=== PATIENT | female | born 1960 | race Caucasian/White ===

== ENCOUNTER → 2017-08-24 | Outpatient (CLI) | payer BC ==
--- NOTE | 2017-08-24 09:09 | KCIC ---
MRI of the cervical spine without contrast 08/24/2017 CLINICAL HISTORY: Neck pain with right arm numbness for the last 6 weeks. TECHNIQUE: Unenhanced T1-weighted, T2-weighted and inversion recovery sagittal and gradient echo and T2-weighted axial images of the cervical spine were obtained. FINDINGS: Comparison study is dated 09/09/2012. Minimal lateral curvature of the cervical spine is seen convex to the left. There is slight reversal of the normal cervical lordosis. Degenerative signal changes are seen involving all of the disks of the cervical spine. Degenerative signal changes within the marrow surrounding these discs. Loss of height of the C5-6 and C6-7 discs is noted. The cervical spinal cord is normal morphology, position, and signal characteristics. At the C2-3, C3-4 and C4-5 disc spaces there are mild generalized disc bulges. Degenerative changes are seen involving the uncovertebral and facet joints bilaterally. These findings do not result in significant central spinal canal or neural foraminal stenosis. At the C5-6 disc space there is a mild generalized disc bulge. Degenerative changes are seen involving the uncovertebral and facet joints, right greater than left. These findings when combined do not result in significant central spinal canal stenosis. Mild right neural foraminal stenosis is seen. The left neural foramen is patent. At the C6-7 disc space there is a mild generalized disc bulge. This is eccentric to the right. Degenerative changes are seen involving the uncovertebral and facet joints, left greater than right. These findings when combined do not result in significant central spinal canal. Mild left greater than right neural foraminal stenosis is seen. At the C7-T1 disc space there is a minimal generalized disc bulge. Degenerative changes are seen involving the facet joints bilaterally. These findings when combined do not result in significant central spinal canal or neural foraminal stenosis. IMPRESSION: Degenerative changes are seen throughout the cervical spine. These findings do not result in significant central spinal canal stenosis at any level. Mild right neural foraminal stenosis is seen at C5-6. Mild left greater than right neural foraminal stenosis is seen at C6-7. Electronically signed by: Doron Crockett MD (08/24/2017 9:06 AM) [facility]
== END | disposition home or self-care (01) ==
LOC: KCIC MRI 07:50
PROVIDERS: ATTEND Physical Medicine & Rehabilitation
DX: M54.12 Radiculopathy, cervical region (principal); G89.29 Other chronic pain; M48.02 Spinal stenosis, cervical region; R20.0 Anesthesia of skin
CPT/HCPCS: 72141

== ENCOUNTER → 2018-05-24 | Outpatient (CLI) | payer BC | END | disposition home or self-care (01) | LOC: EKG 10:42 | DX: Z01.419 Encounter for gynecological examination (general) (routine) without abnormal findings (principal); R94.31 Abnormal electrocardiogram [ECG] [EKG] | CPT/HCPCS: 93005 ==

== ENCOUNTER → 2019-02-08 | Outpatient (CLI) | payer BC ==
[~2019-02-08] MED LIST: DICL75TA PO; ESTR42.53 VG; HYDR-2765 PO; META-21 PO; TOLT4CAP PO
--- NOTE | 2019-02-08 11:31 | KCIC ---
MRI Lumbar Spine without contrast History: Lumbar radiculitis, chronic low back pain off and on worse in recent weeks, left leg pain Technique: Multiplanar, multi sequential noncontrast MR imaging was performed of the lumbar spine. Comparison: None Findings: Lumbar vertebral body stature is overall maintained. There is accentuation of the lordotic curvature. Conus terminates near L1. There is grade 1 anterior spondylolisthesis at L5-S1 and L4-L5. 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 There is moderate to severe degenerative disc disease L5-S1, mild to moderate degenerative disease at L2-3 and to lesser degree at L3-4 and L4-5. There is [id number] levoscoliosis centered near L2. L1-L2: Spinal canal and neural foramina are adequate. There is moderate facet hypertrophic change and mild buckling of the ligamentum flavum. L2-L3: There is moderate to severe facet degenerative change. There is moderate buckling of the ligamentum flavum greater on the right. There is prominence of posterior epidural fat. There is negligible disc osteophyte complex and bulge. There is mild narrowing of the far right lateral recess. There is [id number] narrowing of the right neural foramen, left neural foramen adequate. L3-L4: There is moderate buckling of the ligamentum flavum and facet hypertrophic change greater on the right. There is minimal disc osteophyte complex and bulge. There is anterior annular tear. There is mild narrowing of the far left lateral recess. There is moderate right and mild left neural foramina compromise. L4-L5: There is severe facet degenerative change and mild buckling of the ligamentum flavum. There is mild narrowing the far left lateral recess. There is moderate to severe narrowing of the right neural foramen with contact of the undersurface and posterior surface of the exiting right L4 nerve root. There is also fairly severe narrowing of the left neural foramen in part by shallow protrusion, contact exiting left L4 nerve root. L5-S1: There is fairly severe facet degenerative change. There is left laminectomy defect. There is focus of increased T2 and STIR signal posteriorly likely large annular tear. There is disc osteophyte complex. There is partial uncovering of the posterior aspect of the disc due to spondylolisthesis. Spinal canal is adequate. There is moderate to severe neural foramina compromise bilaterally. Impression: 1. There is grade 1 anterior spondylolisthesis at L4-5 and L5-S1. 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 There is mild lateral recess stenosis on the left at L4-5 and L3-4 and on the right at L2-3. 2. There is neural foramina compromise as stated, more significant narrowing bilaterally at L4-5 and L5-S1, to lesser degree right greater than left at L3-4 and on the right at L2-L3. 3. There is multilevel degenerative disc disease greatest at L5-S1. 4. There is [id number] lumbar levoscoliosis. Electronically signed by: Ghulam Nuñez MD (02/08/2019 11:27 AM) [facility]
== END | disposition home or self-care (01) ==
LOC: KCIC MRI 09:36
PROVIDERS: ATTEND Physical Medicine & Rehabilitation
DX: M43.17 Spondylolisthesis, lumbosacral region (principal); M47.26 Other spondylosis with radiculopathy, lumbar region; M51.16 Intervertebral disc disorders with radiculopathy, lumbar region; M53.3 Sacrococcygeal disorders, not elsewhere classified; M48.07 Spinal stenosis, lumbosacral region; M41.86 Other forms of scoliosis, lumbar region; M25.78 Osteophyte, vertebrae
CPT/HCPCS: 72148

== ENCOUNTER → 2019-04-06 | Outpatient (CLI) | payer BC ==
[~2019-04-06] MED LIST changes: +IOHEXOL 180 MG/ML 10 ML VIAL. ONE; +methylPREDNISolone ACETATE 40 MG/ML VIAL. ONE; +methylPREDNISolone ACETATE 80 MG/ML VIAL. ONE
--- NOTE | 2019-04-07 05:51 | PAIN ---
DATE OF SERVICE: 04/06/2019 INITIAL CONSULTATION FOR PAIN CLINIC CHIEF COMPLAINT: Low back and left lower extremity pain. HISTORY OF PRESENT ILLNESS: This is a 58-year-old female who presents with history of pain in the low back, left lower extremity for many years, worse over the past 1 year. The patient reports no specific injury or action that she is aware of. Pain in the low back, posterior gluteus, posterior thigh, lateral thigh, anterior thigh into the posterior calf and medial calf as well. The patient reports it is becoming more constant, sharp, shooting, radiating into the left leg. No pain on the right leg, worse with walking, standing, changing positions, especially climbing stairs, putting all the weight on her left leg. The patient reports it awakens her from sleep occasionally, but not every night, does not affect her bowel or bladder control, but does affect her ability to walk. She is not using any assistive devices, however, but she is favoring her left leg. The patient has had physical therapy in the past, trigger point injection as well as doing exercise currently all of which helped at that time, but only to a moderate extent. The patient is taking hydrocodone as well as metaxalone and diclofenac. The metaxalone and hydrocodone seemed to help, but only by about 50% at most. 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 The patient rates her disability rating from 0 to 10, 10 being the worst as a 7 to 8 with family and home responsibilities, recreation, social activity; occupation is a 9 and sexual behavior, self-care and life support activities are all rated at 0. The patient reports no loss of motor function in the left lower extremity, but significant fatigability especially with standing or even walking for more than 5 to 10 minutes. PAST MEDICAL HISTORY: Significant for arthritis, dizziness and difficulty urinating. PREVIOUS SURGERY: Includes hysterectomy, left foot surgery, hernia surgery and a right tendon repair in the hand. CURRENT MEDICATIONS: Include Estrace, Skelaxin, hydrocodone, diclofenac and Detrol. ALLERGIES: THE PATIENT IS ALLERGIC TO SULFA. FAMILY HISTORY: Significant for cancers. SOCIAL HISTORY: The patient drinks alcohol about once a month or less, does not smoke, does not use any illegal, illicit or recreational drugs. She is and lives with her spouse, lives locally in [place], [place]. REVIEW OF SYSTEMS: The patient's review of systems is positive for those items mentioned in the history of present illness. All systems reviewed and otherwise negative. It is complete, full and well documented on the patient's chart. PHYSICAL EXAMINATION: VITAL SIGNS: The patient's blood pressure is 197/115, pulse 78, respirations 18, temperature 98.2 degrees Fahrenheit, height 5 feet 7 inches and weight is 206 pounds. GENERAL: The patient is awake, alert, oriented, appropriate, very pleasant demeanor. HEENT: Head shows normocephalic and atraumatic. Extraocular movements are intact and symmetrical. Oral cavity: Mucous membranes are moist and pink. Dentition is intact. NECK: Shows anterior throat is supple without palpable lymphadenopathy noted. Swallow reflex is symmetrical. CHEST: Shows normal with inspection. Breath sounds are clear to auscultation bilaterally. HEART: Shows S1, S2 clear. No murmurs are auscultated. ABDOMEN: Shows soft, nontender and nondistended. No palpable organomegaly is noted. No rebound or guarding demonstrated. BACK: Shows spine grossly in the midline. Normal appearing thoracic kyphosis, lumbar lordotic curvature. Lumbar paraspinous muscle shows symmetrical on inspection. With palpation shows some moderate tenderness, but only diffusely in the low lumbar distribution, but only in the lower lumbar more in the left than the right without radiation. No tenderness over the spinous processes, sacrum or sacroiliac regions. EXTREMITIES: The patient's lower extremities show deep tendon reflexes at 1+ in the patellar and tendo-calcaneus tendons. Motor exam is approximately 4 on a scale of 5 on the left and 5/5 on the right with dorsiflexion, extension, quadriceps and hamstring flexion. Peripheral pulses are 1+ posterior tibia. No peripheral edema is noted bilaterally. Straight leg raising is noted to be positive on the left at about 40 degrees and right side is negative. Gaenslen's and Salvatore's maneuvers are negative bilaterally. The patient is able to stand, stand on her toes, walks with a normal appearing gait for short distance in the office today and does not appear to favor the right or left lower extremity significantly. SKIN: The patient's skin shows warm and dry and good turgor. No edema. No sores, rashes or bruising throughout. IMPRESSION: 1. This is a 58-year-old female with approximate one-year history of pain in the low back, left lower extremity in a radicular fashion. 2. MRI scan of the lumbar spine as noted. 3. Arthritis. PLAN: Options were discussed with the patient including conservative medical management, physical therapy, interventional techniques. She would like to pursue interventional techniques. We discussed a lumbar epidural steroid injection using description as well as anatomical models to describe the procedure. Risks were then discussed including, but not limited to bleeding, infection, possibility of epidural hematoma and subsequent neurological compromise, dural puncture, headaches, spinal cord and/or nerve damage, side effects of steroid medication and poor results regarding pain control. The patient understands and wished to proceed. The patient will return to the clinic in approximately 2 weeks for followup, was counseled as to return appointment, activity level and side effects to be aware of. DIAGNOSES: Lumbar radiculopathy with lumbar degenerative disk disease and lumbar spinal stenosis. PROCEDURE: Lumbar epidural steroid injection, translaminar approach at the L4-L5 level using C-arm fluoroscopic guidance under sterile prep and drape using local anesthetic. MEDICATION INJECTED: A total of 120 mg of Depo-Medrol plus 10 mL of preservative-free normal saline and 2 mL of Isovue for contrast. CONDITION AT DISCHARGE: Stable. The patient tolerated the procedure well and had no complications. KATHY GRIMM MD DR: MAYLIN/lonny JOB#: [id number] / [id number]
== END ==
LOC: PNCL 10:09
PROVIDERS: ATTEND Anesthesiology
DX: M51.16 Intervertebral disc disorders with radiculopathy, lumbar region (principal); M54.5 Low back pain; M19.90 Unspecified osteoarthritis, unspecified site; Z88.2 Allergy status to sulfonamides; Z79.899 Other long term (current) drug therapy; Z90.710 Acquired absence of both cervix and uterus; Z98.890 Other specified postprocedural states
CPT/HCPCS: 62323; J1030; J1040; Q9965

== ENCOUNTER → 2019-04-20 | Outpatient (CLI) | payer BC ==
--- NOTE | 2019-04-20 23:47 | PAIN ---
DATE OF SERVICE: 04/20/2019 PROGRESS NOTE FOR PAIN CLINIC: DIAGNOSES: Lumbar radiculopathy with lumbar degenerative disk disease, lumbar spinal stenosis. HISTORY OF PRESENT ILLNESS: The patient is a 58-year-old female who returns for followup status post lumbar epidural steroid injection x 1. The patient reports about 50% improvement and her left leg is completely resolved. No pain in the leg at this time. It is all in the back and the hip posteriorly and laterally on the lateral thigh. The patient reports it is 7 on a scale of 10 at its worst, 3 on average, 0 at its least and is a 3 today. Over the past week, the patient reports it is a sharp pain that is shooting, also radiating to the left leg, but again much improved in the leg itself. The patient reports no new motor or sensory deficits, no new bowel or bladder incontinence, had been sleeping well at night, increased her distance walking, doing activities at work and at home and traveling with greater ease and comfort. PHYSICAL EXAMINATION: VITAL SIGNS: The patient's blood pressure is 172/79, pulse is 88, respirations are 18, temperature 97.9 degrees Fahrenheit, height is 5 feet 5 inches, weight is 202 pounds. GENERAL: The patient is awake, alert, oriented, appropriate, very pleasant demeanor. HEENT: Head shows normocephalic, atraumatic. Extraocular muscles are intact and symmetrical. Oral cavity: Mucous membranes moist and pink. Dentition is intact. NECK: Shows anterior throat supple without palpable lymphadenopathy noted. Swallow reflex symmetrical. CHEST: Shows normal with inspection. Breath sounds clear to auscultation bilaterally. HEART: Shows S1, S2 clear. No murmurs auscultated. ABDOMEN: Soft, nontender, nondistended. No palpable organomegaly is noted. No rebound or guarding demonstrated. BACK: Shows spine grossly in the midline. Normal appearing thoracic kyphosis and lumbar lordotic curvature. Lumbar paraspinous muscle shows symmetrical on inspection, with palpation shows some mild tenderness, but only diffusely in the low lumbar distribution without radiation. The patient has good rotational motion both laterally as well as extension and flexion without significant pain reported. EXTREMITIES: Lower extremities show deep tendon reflexes 1+ in the patellar and tendo calcaneus tendons are equal. Motor exam is approximately 4/5 on the left and 5/5 on the right. Peripheral pulses are 1+ posterior tibial. No peripheral edema is noted bilaterally. Options were discussed with the patient. The patient's old chart was reviewed as well as her current medication regimen updated. Current review of systems updated today as well. We will proceed with a second lumbar epidural steroid injection today with fluoroscopic guidance. Risks were again discussed including, but not limited to bleeding, infection, possibility of epidural hematoma, subsequent neurologic compromise, dural-puncture headaches, spinal cord and/or nerve damage, side effects of steroid medication and poor results regarding pain control. The patient understands and wished to proceed. The patient will return to clinic in approximately 2 weeks for followup, was counseled as to return appointment, activity level and side effects to be aware of. DIAGNOSES: Lumbar radiculopathy with lumbar spinal stenosis, lumbar degenerative disk disease. PROCEDURE: Lumbar epidural steroid injection, translaminar approach L4-L5 level using C-arm fluoroscopic guidance under sterile prep and drape using local anesthetic. MEDICATION INJECTED: A total of 120 mg Depo-Medrol plus 10 mL preservative-free normal saline and 2 mL of contrast. CONDITION AT DISCHARGE: Stable. The patient tolerated the procedure well, had no complications. KATHY GRIMM MD DR: MAYLIN/lonny JOB#: [id number] / [id number]
== END ==
LOC: PNCL 09:57
PROVIDERS: ATTEND Anesthesiology
DX: M51.16 Intervertebral disc disorders with radiculopathy, lumbar region (principal); M48.061 Spinal stenosis, lumbar region without neurogenic claudication
CPT/HCPCS: 62323; J1030; J1040; Q9965

== ENCOUNTER → 2019-05-10 | Outpatient (CLI) | payer BC ==
--- NOTE | 2019-05-10 11:15 | PAIN ---
DATE OF SERVICE: 05/10/2019 PROGRESS NOTE FOR PAIN CLINIC DIAGNOSES: Lumbar radiculopathy with lumbar degenerative disk disease and lumbar spinal stenosis. HISTORY OF PRESENT ILLNESS: The patient is a 58-year-old female who returns for followup status post lumbar epidural steroid injection x 2, most recently on 04/20/2019. The patient did very well with this with about 50% improvement overall. The patient reports that she is doing a lot of walking. She was on vacation last week and was walking and doing some hiking and this has increased the pain in the low back and left leg. The patient reports it is in the left posterior gluteus, posterior lateral thigh, lateral anterior thigh, anterior medial thigh, medial lower leg as well as lateral lower leg with some tingling in the leg below the knee. The patient reports a burning, sharp, radiating tingling, sometimes more tight and shooting in the back as well. The patient reports it is a 7 on a scale of 10 at its worse, 2 on average, 0 at its least and is a 2 today. The patient reports no new motor or sensory deficits and no new bowel or bladder incontinence. Reports it does not awaken her from sleep at night, better with sitting or lying down. Otherwise, she was increasing her distance walking with greater ease. Again, feels that she may have done more walking than necessary on her vacation. PHYSICAL EXAMINATION: VITAL SIGNS: The patient's blood pressure 130/96, pulse 76, respirations are 16 and temperature is 98.3 degrees Fahrenheit. Height is 5 feet 5 inches and weight is 209 pounds. GENERAL: The patient is awake, alert, oriented, appropriate and very pleasant demeanor. HEENT: Head is normocephalic and atraumatic. Extraocular movements are intact and symmetrical. Oral cavity: Mucous membranes moist and pink. Dentition is intact. NECK: Shows anterior throat supple. CHEST: Shows normal with inspection. Breath sounds are clear bilaterally. HEART: Shows S1 and S2 clear. ABDOMEN: Soft, nontender and nondistended. BACK: Shows spine grossly in the midline. Lumbar paraspinous musculature shows symmetrical on inspection and palpation shows some moderate tenderness diffusely bilaterally but only in the low lumbar distribution. The patient has full rotational motion of the lumbar spine, both laterally as well as extension and flexion without significant increase in pain. EXTREMITIES: Lower extremities show deep tendon reflexes 1+ in the patellar and tendo-calcaneus tendons. Motor exam is approximately 4 on a scale of 5 with left dorsiflexion and extension, 5/5 with right. Peripheral pulses are 1+ posterior tibia. No peripheral edema is noted bilaterally. Options were discussed with the patient. The patient's old chart was reviewed as well as her current medication regimen updated. Current review of systems updated today as well. We will proceed with a third lumbar epidural steroid injection today with fluoroscopic guidance. Risks were again discussed including, but not limited to bleeding, infection, possibility of epidural hematoma, subsequent neurological compromise, dural puncture, headaches, spinal cord and/or nerve damage, side effects of steroid medication and poor results regarding pain control. The patient understands and wished to proceed. The patient will return to the clinic in approximately 2 weeks for followup, was counseled as to return appointment, activity level and side effects to be aware of. DIAGNOSES: Lumbar radiculopathy with lumbar degenerative disk disease and lumbar spinal stenosis. PROCEDURE: Lumbar epidural steroid injection, translaminar approach, L4-L5 level using C-arm fluoroscopic guidance under sterile prep and drape using local anesthetic. MEDICATION INJECTED: A total of 120 mg Depo-Medrol plus 10 mL of preservative-free normal saline and 2 mL of contrast. CONDITION AT DISCHARGE: Stable. The patient tolerated the procedure well and had no complications. KATHY GRIMM MD DR: MAYLIN/lonny JOB#: [id number] / [id number]
== END ==
LOC: PNCL 08:58
PROVIDERS: ATTEND Anesthesiology
DX: M51.16 Intervertebral disc disorders with radiculopathy, lumbar region (principal); M48.061 Spinal stenosis, lumbar region without neurogenic claudication
CPT/HCPCS: 62323; J1030; J1040; Q9965

== ENCOUNTER 2019-08-13 17:58 | Emergency (ER) | payer BC ==
[~2019-08-13] VITALS: Ht 167.6 cm; Wt 90.7 kg
[~2019-08-13 17:58] MED LIST changes: -IOHEXOL 180 MG/ML 10 ML VIAL. ONE; -methylPREDNISolone ACETATE 40 MG/ML VIAL. ONE; -methylPREDNISolone ACETATE 80 MG/ML VIAL. ONE
[2019-08-13 18:06] VITALS: BP 139/83
[2019-08-13] MEDS ORDERED: DIPHTH,PERTUSS(ACELL),TET TOX 0.5 ML DISP.SYRIN. VAX IM ONE (18:30)
[2019-08-13] MEDS ORDERED: LIDOCAINE 1% PF 2 ML VIAL. INJ ONE (18:30)
[2019-08-13] MEDS ORDERED: GELATIN SPONGE SIZE 12-7MM SPONGE. ONE (18:54)
--- NOTE | 2019-08-13 19:08 | PHYS DOC ---
Past Medical History Past Medical History: Hypertension Past Surgical History: Hysterectomy Additional Past Surgical Histo: HERNIA Alcohol Use: Rarely Drug Use: None Adult General Chief Complaint Chief Complaint: LACERATION/AVULSION HPI HPI Patient is a 58 year old female who presents to the emergency department with complaints of a left thumb laceration. Patient states she is putting dishes away when she tried to catch a falling glass and it broke and sliced her thumb. She is unsure when her last tetanus shot was. She denies any numbness, tingling, or decreased range of motion of the affected thumb. She states the incident happened just prior to arrival. Review of Systems Review of Systems Constitutional: Denies fever or chills [] Musculoskeletal: Denies joint pain [] Integument: Denies rash; see history of present illness Neurologic: Denies headache, focal weakness or sensory changes [] ] Complete systems were reviewed and found to be within normal limits, except as documented in this note. Current Medications Current Medications Current Medications Medications (Trade) Dose Ordered Sig/Ysabel Start Time Stop Time Status Last Admin Dose Admin Diphtheria/ Tetanus/Acell Pertussis (Boostrix) 0.5 ml ONCE ONCE 08/13/19 18:30 08/13/19 18:31 DC 08/13/19 18:23 0.5 ML Gelatin (Gelfoam Size 12-7mm) 1 each STK-MED ONCE 08/13/19 18:54 08/13/19 18:54 DC Lidocaine HCl (Xylocaine-Mpf 1% 2ml Vial) 4 ml 1X ONCE 08/13/19 18:30 08/13/19 18:31 DC 08/13/19 18:24 4 ML Allergies Allergies Allergies Coded Allergies Type Severity Reaction Last Updated Verified Sulfa (Sulfonamide Antibiotics) Allergy Intermediate fever 04/06/19 Yes Physical Exam Physical Exam Constitutional: Well developed, well nourished, no acute distress, non-toxic appearance. [] HENT: Normocephalic, atraumatic, bilateral external ears normal, nose normal. [] Eyes: PERRLA, EOMI, conjunctiva normal, no discharge. [] Neck: Normal range of motion, no stridor. [] Cardiovascular:Heart rate regular rhythm Lungs & Thorax: Respirations even and unlabored, no retractions, no respiratory distress Skin: Warm, dry, no erythema, no rash; 2 cm x 1.5 cm v-shaped laceration noted to left thumb, bleeding controlled with pressure bandage. . [] Extremities: L thumb: No cyanosis, ROM intact, no edema. [] Neurologic: Alert and oriented X 3, normal motor function, normal sensory function, no focal deficits noted. [] Psychologic: Affect normal, judgement normal, mood normal. [] Current Patient Data Vital Signs Vital Signs Date Time Temp Pulse Resp B/P (MAP) Pulse Ox O2 Delivery O2 Flow Rate FiO2 08/13/19 18:06 97.2 89 14 139/83 (101) 98 Room Air 97.2 EKG EKG [] Radiology/Procedures Radiology/Procedures Laceration Repair by me: Anesthesia: 1% lidocaine locally Location: L thumb Tendon/Joint/Nerves: No injury Foreign body: None detected after copious irrigation and exploration Technique: Simple Interrupted Sutures Complexity: No subcutaneous sutures/mucosal repair/edge excision Post Closure Length: 3.5 cm Patient's bleeding was easily controlled in the department and there is no indication of anemia. No evidence of compartment syndrome, neurologic injury, vascular injury, open joint, tendon laceration, or foreign body. Patient is appropriate for outpatient follow up. Course & Med Decision Making Course & Med Decision Making Pertinent Labs and Imaging studies reviewed. (See chart for details) [] Dragon Disclaimer Dragon Disclaimer This electronic medical record was generated, in whole or in part, using a voice recognition dictation system. Departure Departure Impression: Primary Impression: Laceration of left thumb without foreign body without damage to nail Additional Impression: Need for Tdap vaccination Disposition: 01 HOME, SELF-CARE Condition: STABLE Referrals: JUANITO LANDRUM MD (PCP) Patient Instructions: Laceration Care, Adult, [id number] Additional Instructions: Keep the area clean and dry. You may take Tylenol or ibuprofen as needed for pain. Keep the dressing that was placed today on for 24 hours then change the dressing twice a day and apply antibiotic ointment to the area. Follow-up with your primary care doctor, or return to the emergency room in 14 days to have the sutures removed, sooner if you develop signs of infection including: redness, warmth, drainage, or a fever. Problem Qualifiers Primary Impression: Laceration of left thumb without foreign body without damage to nail Encounter type: initial encounter Qualified Codes: S61.012A - Laceration without foreign body of left thumb without damage to nail, initial encounter CEDRICK LOWE APRN Aug 13, 2019 19:08
== END 2019-08-13 19:37 | disposition home or self-care (01) ==
LOC: ER 17:58
DX: S61.012A Laceration without foreign body of left thumb without damage to nail, initial encounter (principal); I10 Essential (primary) hypertension; Z88.2 Allergy status to sulfonamides; W25.XXXA Contact with sharp glass, initial encounter; Y93.89 Activity, other specified; Y92.89 Other specified places as the place of occurrence of the external cause; Y99.8 Other external cause status
CPT/HCPCS: 12002; 29130; 90471; 90715; 99283

== ENCOUNTER → 2019-12-23 | Outpatient (CLI) | payer BC ==
--- NOTE | 2019-12-23 11:04 | KCIC ---
UPPER EXT JOINT WO CONT LEFT dated 12/23/2019 10:15 AM Indication: Shoulder pain decreased range of motion no known injury. Comparison: No comparison is available. Technique: Routine multiplanar multisequence imaging performed. . Findings: There is intermediate T2 signal throughout the supraspinatus and infraspinatus portions of the rotator cuff. Mild bursal and interstitial partial tearing of the anterior supraspinatus footplate tendons the cuff substance by about 50%. No full-thickness tear or cuff retraction. Subscapularis is intact. Mild hypertrophic change of the AC joint. Minimal undersurface spurring. No significant subacromial/subdeltoid bursal fluid collection. Acromion type I morphology. Intermediate signal within the substance of the long head biceps tendon proximally. Extra articular portion courses within the bicipital groove. Biceps anchor is intact. There is minimal hypertrophic change at the glenohumeral joint. No glenoid cartilage defect. The labrum is grossly intact. No apparent labral tear or para labral cyst. Suprascapular and spinoglenoid notches are clear. No significant muscle edema or muscle atrophy. IMPRESSION: 1. Mild rotator cuff tendinopathy with no evidence of full-thickness tear. 2. Mild AC joint arthropathy with minimal undersurface spurring of the acromium. 3. Mild biceps tendinosis. 4. No apparent labral tear.. Electronically signed by: Humphrey Martinez MD (12/23/2019 11:01 AM) [id number]
== END | disposition home or self-care (01) ==
LOC: KCIC MRI 09:55
PROVIDERS: ATTEND Physical Medicine & Rehabilitation
DX: M13.812 Other specified arthritis, left shoulder (principal); M75.102 Unspecified rotator cuff tear or rupture of left shoulder, not specified as traumatic; M89.38 Hypertrophy of bone, other site; M75.82 Other shoulder lesions, left shoulder
CPT/HCPCS: 73221